=== PATIENT | female | born 1965 | race Caucasian/White ===

== ENCOUNTER 2016-11-19 21:27 | Emergency (ER) | payer OTHER ==
[~2016-11-19 21:27] MED LIST: ASPIR 8181 M1; BYSTOLIC5 MG PO; FLEXERIL5 MG PO; GLUCOPHAGE500 MG PO; GLUCOTROL XL5 MG PO; GLUCOTROL5 MG PO; HYDROCHLOROTHIA25 MG; INDERAL80 MG PO; JANUMET 50/51 TABLET PO; JANUVIA100 MG; LISINOPRIL5 MG PO; MAXALT10 MG PO; METOPROLOL TART25 MG PO; MOBIC15 M1; NAPROSYN500 MG PO; NORCO 5/3251 TABLET PO; PERCOCET 5/31 TABLET PO; TRAMADOL HCL50 MG PO; TYLENOL WITH C1 EACH PO; ULTRAM50 MG PO; ZOFRAN4 MG PO; [UNRECOGNIZED DRUG - REMARK]
== END 2016-11-19 22:20 | disposition left against medical advice (07) ==
LOC: EME 21:27
DX: M79.672 Pain in left foot (principal); M25.572 Pain in left ankle and joints of left foot; Z53.21 Procedure and treatment not carried out due to patient leaving prior to being seen by health care provider

== ENCOUNTER 2016-11-19 22:40 | Emergency (ER) | payer OTHER ==
[~2016-11-19] VITALS: Ht 165.1 cm; Wt 136.8 kg
[2016-11-20 00:39] VITALS: BP 134/89
== END 2016-11-20 00:41 | disposition home or self-care (01) ==
LOC: EME 22:40
DX: M25.572 Pain in left ankle and joints of left foot (principal); I10 Essential (primary) hypertension; E11.9 Type 2 diabetes mellitus without complications; Z79.84 Long term (current) use of oral hypoglycemic drugs
CPT/HCPCS: 73610; 99281; 99284

== ENCOUNTER 2017-02-21 20:32 | Emergency (ER) | payer OTHER ==
[~2017-02-21] VITALS: Ht 165.1 cm; Wt 126.9 kg
[~2017-02-21 20:32] MED LIST changes: +BENADRYL50 MG PO; +PREDNISONE20 MG PO; +ZANTAC150 MG PO
[2017-02-22 00:36] VITALS: BP 146/83
== END 2017-02-22 00:38 | disposition home or self-care (01) ==
LOC: RME 20:32 → EME 20:32 → RME 02-22 00:38
DX: T63.441A Toxic effect of venom of bees, accidental (unintentional), initial encounter (principal); I10 Essential (primary) hypertension; E11.9 Type 2 diabetes mellitus without complications; Z79.84 Long term (current) use of oral hypoglycemic drugs
CPT/HCPCS: 99281; 99284; J1200; J2930; J7030; J7512; S0028

== ENCOUNTER 2017-04-25 16:48 | Emergency (ER) | payer OTHER ==
[~2017-04-25] VITALS: Ht 165.1 cm; Wt 127.0 kg
[2017-04-25 19:18] LABS: EOSINOPHIL (%) 1.7 % (0-5); EOSINOPHIL COUNT 0.2 K/uL (0-0.3); HEMATOCRIT 41.6 % (36.0-46.0); IMMATURE GRANULOCYTE (%) 0.5 % (0.0-0.7); IMMATURE GRANULOCYTE COUNT 0.1 K/uL; INSTRUMENT ABS NEUTROPHIL CT 6.2 K/uL; LYMPHOCYTE COUNT 4.3 K/uL (1.0-2.8); MCH 26.1 PG (29.0-34.0); MCHC 31.5 G/DL (30.0-36.0); MEAN PLAT.VOLUME 10.4 uM^3 (9.5-12.4); MONOCYTE (%) 6.5 % (3-12); MONOCYTE COUNT 0.8 K/uL (0-0.8); NEUTROPHIL (%) 53.8 % (45-76); NEUTROPHIL COUNT 6.2 K/uL (1.8-6.4); PLATELET COUNT 294 K/uL (156-360); RBC DIS.WIDTH-CV 15.4 % (11.8-14.6); RBC DIS.WIDTH-SD 46.4 % (39-53); RED BLOOD COUNT 5.01 M/uL (3.80-5.20); WHITE BLOOD COUNT 11.6 K/uL (4.1-10.2)
[2017-04-25 19:26] LABS: CHLORIDE 107 mEq/L (99-109); POTASSIUM 3.6 mEq/L (3.7-5.4); SODIUM 142 mEq/L (136-147)
[2017-04-25 19:28] LABS: ADD MIUA? NO; BILIRUBIN NEGATIVE; BLOOD NEGATIVE; COLOR STRAW ((YELLOW)); GLUCOSE (STRIP) NEGATIVE; KETONES NEGATIVE; LEUKOCYTES NEGATIVE; NITRITE NEGATIVE; PROTEIN (STRIP) NEGATIVE; SPECIFIC GRAVITY 1.006 (1.000-1.030); UROBILINOGEN 0.2 MG/DL (0.2-1.0)
[2017-04-25 19:28] LABS: GLUCOSE 108 mg/dL (70-99)
[2017-04-25 19:29] LABS: ANION GAP 14 MEQ/L (2-14)
[2017-04-25 19:30] LABS: TOTAL BILIRUBIN 0.2 mg/dL (0.0-1.0)
[2017-04-25 19:31] LABS: INTER. NORMALIZED RATIO 1.1; PROTHROMBIN TIME 12.2 SEC (10.2-12.9)
[2017-04-25 19:32] LABS: ALKALINE PHOSPHATASE 87 IU/L (3-129); GFR ESTIMATE (CALCULATED) > 59 mL/min/
[2017-04-25 19:33] LABS: DIRECT BILIRUBIN 0.1 mg/dL (0.0-0.3); UREA NITROGEN (BUN) 13 mg/dL (9-23)
[2017-04-25 20:17] VITALS: BP 138/74
== END 2017-04-25 20:21 | disposition home or self-care (01) ==
LOC: EME 16:48
PROVIDERS: Physician Assistant
DX: R23.3 Spontaneous ecchymoses (principal); I10 Essential (primary) hypertension; E11.9 Type 2 diabetes mellitus without complications; Z79.84 Long term (current) use of oral hypoglycemic drugs; Z87.891 Personal history of nicotine dependence
CPT/HCPCS: 80048; 80076; 81003; 85025; 85610; 85730; 99281; 99284

== ENCOUNTER 2017-07-07 07:56 | Emergency (ER) | payer OTHER ==
[~2017-07-07] VITALS: Ht 165.1 cm; Wt 125.7 kg
[2017-07-07 08:30] LABS: MCHC 32.4 G/DL (30.0-36.0); MCV 83.3 FL (83-99); PLATELET COUNT 317 K/uL (156-360); RBC DIS.WIDTH-CV 15.1 % (11.8-14.6); RBC DIS.WIDTH-SD 45.2 % (39-53); RED BLOOD COUNT 5.04 M/uL (3.80-5.20); WHITE BLOOD COUNT 11.6 K/uL (4.1-10.2)
[2017-07-07 09:09] LABS: ANION GAP 10 MEQ/L (2-14); CHLORIDE 104 MEQ/L (99-109); POTASSIUM 3.7 MEQ/L (3.7-5.4); SAMPLE HEMOLYSIS CHECK 0; SAMPLE ICTERIC CHECK 0; SAMPLE LIPEMIA CHECK 0; SODIUM 139 MEQ/L (136-147)
[2017-07-07 09:15] LABS: GFR ESTIMATE (CALCULATED) > 59 mL/min/; GLUCOSE 163 mg/dL (70-99); UREA NITROGEN (BUN) 9 mg/dL (9-23)
[2017-07-07 09:41] LABS: TROP-I INTERPRETATION NEGATIVE; TROPONIN-I < 0.01 ng/mL (0.0-0.30)
[2017-07-07] MEDS ORDERED: VALIUM5 MG PO (10:22)
[2017-07-07 10:32] VITALS: BP 146/82
== END 2017-07-07 10:33 | disposition home or self-care (01) ==
LOC: EME 07:56
DX: M62.838 Other muscle spasm (principal); R07.89 Other chest pain; M54.2 Cervicalgia; M25.512 Pain in left shoulder; I10 Essential (primary) hypertension; E11.9 Type 2 diabetes mellitus without complications; Z79.84 Long term (current) use of oral hypoglycemic drugs
CPT/HCPCS: 71020; 80048; 84484; 85027; 93005; 99281; 99284